=== PATIENT | female | born 1995 | race American Indian/Alaskan Native ===

== ENCOUNTER 2017-10-25 14:46 | Emergency (ER) | payer SELFPAY ==
[2017-10-25 14:58] VITALS: BP 127/78
[2017-10-25 15:26] LABS: HCG Qualitative,Urine Negative (Negative)
[2017-10-25 15:33] LABS: Bacteria,Urine 1+ /HPF (Negative); Bilirubin,Urine NEG (Negative); Blood,Urine SM (Negative); Color,Urine Amber (Yellow); Mucus,Urine 1+ /HPF; Renal Epithelial Cells,Urine 1 /LPF
[2017-10-25 15:35] LABS: WBC,Urine > 182.0 /HPF (0.0-6.0)
--- NOTE | 2017-10-25 19:27 | Emergency Department Report ---
ED Female HPI - General Chief complaint: Urogenital-Female Stated complaint: STD CHECK Time Seen by Provider: 10/25/17 19:21 Source: patient Mode of arrival: Ambulatory Limitations: No Limitations - History of Present Illness Initial comments: 22-year-old Pakistani female brought in by her dad concern for kidney cancer. Patient presents she's had lower back pain and abdominal pain since Monday. Patient also admits to urinary frequency and urgency. Patient reports low- grade fever and some nausea since being here in the emergency room doesn't feel that it that important. Patient's father reports that she doesn't drink much water. Patient's no past medical history currently takes no medications on a daily basis and has no known drug allergies. She currently does not have a primary care provider. -: days(s) (6) Radiation: L flank, R flank Severity: severe Severity scale (0 -10): 10 Quality: stabbing Consistency: constant Improves with: none Worsens with: urination Last Menstrual Period: 10/02/17 EDC: 07/09/18 - Related Data Previous Rx's Medication Instructions Recorded Last Taken Type Nitrofurantoin Monohyd/M-Cryst 100 mg PO BID 10 Days #20 capsule 10/25/17 Unknown Rx [Macrobid 100 mg Capsule] traMADol [Ultram 50 MG tab] 50 mg PO Q6HR PRN #12 tablet 10/25/17 Unknown Rx Allergies Allergy/AdvReac Type Severity Reaction Status Date / Time No Known Allergies Allergy Verified 10/25/17 14:55 ED Review of Systems ROS: Stated complaint: STD CHECK Other details as noted in HPI Constitutional: fever (low-grade) Respiratory: denies: cough, shortness of breath, wheezing Gastrointestinal: denies: abdominal pain, nausea, diarrhea Genitourinary: urgency, frequency Musculoskeletal: back pain Skin: denies: rash, lesions Neurological: denies: headache, weakness, paresthesias ED Past Medical Hx - Past Medical History Previous Medical History?: No - Surgical History Past Surgical History?: No - Social History Smoking Status: Never Smoker Substance Use Type: Marijuana - Medications Home Medications: Home Medications Medication Instructions Recorded Confirmed Last Taken Type Nitrofurantoin Monohyd/M-Cryst 100 mg PO BID 10 Days #20 capsule 10/25/17 Unknown Rx [Macrobid 100 mg Capsule] traMADol [Ultram 50 MG tab] 50 mg PO Q6HR PRN #12 tablet 10/25/17 Unknown Rx ED Physical Exam - General Limitations: No Limitations General appearance: alert, in no apparent distress - Head Head exam: Present: atraumatic, normocephalic - GI/Abdominal GI/Abdominal exam: Present: soft. Absent: distended, tenderness, guarding, rebound - Back Exam Back exam: Present: CVA tenderness (R), CVA tenderness (L) - Neurological Exam Neurological exam: Present: alert, oriented X3 - Psychiatric Psychiatric exam: Present: normal affect, normal mood - Skin Skin exam: Present: warm, dry, intact, normal color. Absent: rash ED Course Vital Signs 10/25/17 14:55 Temperature 99.3 F Pulse Rate 67 Respiratory 18 Rate Blood Pressure 127/78 O2 Sat by Pulse 100 Oximetry ED Medical Decision Making - Medical Decision Making Patient's been evaluated by this provider fast track. Urinalysis shows patient has a urinary tract infection. Discussed the patient that I'll place her antibiotics. Discussed the patient she needs to increase her water intake by 2 L a day. Discussed the patient to void after intercourse. Discussed the patient I will refer her to a primary care provider for further evaluation. Patient verbalizes understanding. Critical care attestation.: If time is entered above; I have spent that time in minutes in the direct care of this critically ill patient, excluding procedure time. ED Disposition Clinical Impression: UTI (urinary tract infection) Qualifiers: Urinary tract infection type: acute cystitis Hematuria presence: without hematuria Qualified Code(s): N30.00 - Acute cystitis without hematuria Disposition: - TO HOME OR SELFCARE Is pt being admited?: No Does the pt Need Aspirin: No Condition: Stable Instructions: Urinary Tract Infection in Women (ED) Additional Instructions: Please complete antibiotics as prescribed. Please increase your water intake by 2 L day. Please take pain medication as prescribed please do not operate heavy machinery while taking pain medication. Please follow up with her primary care provider I have listed one below. Prescriptions: Nitrofurantoin Monohyd/M-Cryst [Macrobid 100 mg Capsule] 100 mg PO BID 10 Days # 20 capsule traMADol [Ultram 50 MG tab] 50 mg PO Q6HR PRN #12 tablet PRN Reason: Pain Referrals: PRIMARY CARE, [Primary Care Provider] - 3-5 Days [facility] [Provider Group] - 3-5 Days Forms: Work/School Release Form(ED), Accompanied Note
== END 2017-10-25 19:45 | disposition home or self-care (01) ==
LOC: ED 14:46
DX: N39.0 Urinary tract infection, site not specified (principal)
CPT/HCPCS: 81001; 81025; 99283

== ENCOUNTER 2019-02-21 13:23 | Emergency (ER) | payer SELFPAY ==
[2019-02-21 13:30] VITALS: BP 107/79
--- NOTE | 2019-02-21 13:33 | Emergency Department Report ---
Blank Doc - Documentation Documentation: 23-year-old female that presents with lower back pains with weakness. Denies any injuries or trauma. Stated due to the pain has difficulty walking. This initial assessment/diagnostic orders/clinical plan/treatment(s) is/are subject to change based on patient's health status, clinical progression and re- assessment by fellow clinical providers in the ED. Further treatment and workup at subsequent clinical providers discretion. Patient/guardians urged not to elope from the ED as their condition may be serious if not clinically assessed and managed. Initial orders include: 1- Patient sent to [facility] for further evaluation and treatment 2- CT lumbar spine 3- UA
[2019-02-21 14:14] LABS: HCG Qualitative,Urine Negative (Negative)
[2019-02-21 14:18] LABS: Bacteria,Urine 1+ /HPF (Negative); Bilirubin,Urine NEG (Negative); Blood,Urine SM (Negative); Color,Urine Yellow (Yellow); Mucus,Urine FEW /HPF; Protein,Urine <15 mg/dL mg/dL (Negative); Urobilinogen,Urine < 2.0 mg/dL (<2.0)
[2019-02-21 15:21] LABS: BUN/Creatinine Ratio 17; Blood Urea Nitrogen 10 mg/dL (7-17); Calcium 8.9 mg/dL (8.4-10.2); Hemolysis Index 14
[2019-02-21 15:38] LABS: Hematocrit 36.9 % (30.3-42.9); Hemoglobin 11.8 gm/dl (10.1-14.3); Mean Corpuscular HGB Conc 32 % (30-34); Mean Corpuscular Volume 74 fl (79-97); Platelet Count 250 K/mm3 (140-440); Red Blood Count 5.01 M/mm3 (3.65-5.03); Red Cell Distribution Width 17.8 % (13.2-15.2)
--- NOTE | 2019-02-21 15:43 | Cat Scan Report ---
CT LUMBAR SPINE WITHOUT CONTRAST INDICATION: low back pain. TECHNIQUE: Axial imaging performed through the lumbar spine without the use of contrast. Sagittal a nd coronal reconstructed images were also reviewed. All CT scans at this location are performed usin g CT dose reduction for ALARA by means of automated exposure control. COMPARISON: None FINDINGS: Alignment: Spinal alignment is normal. Bones: There is no acute osseous abnormality. The disc spaces, facet joints and posterior elements are unremarkable. No neural foraminal narrowing or central canal narrowing is identified. Soft tissues: No acute or significant incidental soft tissue abnormality. IMPRESSION: Normal CT of the lumbar spine. Signer Name: Modesto Nagel Jr, MD Signed: 02/21/2019 3:38 PM Workstation Name: [id number]
--- NOTE | 2019-02-21 15:48 | Emergency Department Report ---
ED Back Pain/Injury HPI - General Chief Complaint: Weakness Stated Complaint: FATIGUE/SEVERE BACK/NUMB FINGERS Time Seen by Provider: 02/21/19 13:31 Source: patient Limitations: No Limitations - History of Present Illness Initial Comments: This is a 23-year-old -[place] female who presents to the emergency room with weakness, low back pain, numbness or tingling for 5 days. Patient reports symptoms started in lower back. Reports low back pain as achy pain that is wor se with movement. States pain is non-radiating. She reports feeling fatigued and numbness and tingling to bilateral hands and feet. Denies recent injury, change in urinary or bowel pattern, swelling, bruising, heaviness or stiffness in limbs, cough, fever, congestion, chills, abdominal pain. MD Complaint: back pain Onset/Timin -: days(s) Similar Symptoms Previously: No Place: home Radiation: none Severity: moderate Severity scale (0 -10): 6 Quality: aching Consistency: constant Improves With: none Worsens With: movement, walking Context: unknown Associated Symptoms: difficulty walking. denies: numbness, difficulty urinating, incontinence, fever/chills - Related Data Previous Rx's Medication Instructions Recorded Last Taken Type Nitrofurantoin Monohyd/M-Cryst 100 mg PO BID 10 Days #20 capsule 10/25/17 Unknown Rx [Macrobid 100 mg Capsule] traMADol [Ultram 50 MG tab] 50 mg PO Q6HR PRN #12 tablet 10/25/17 Unknown Rx Naproxen [Naprosyn] 500 mg PO BID PRN #20 tablet 02/21/19 Unknown Rx Allergies Allergy/AdvReac Type Severity Reaction Status Date / Time No Known Allergies Allergy Verified 10/25/17 14:55 ED Review of Systems ROS: Stated complaint: FATIGUE/SEVERE BACK/NUMB FINGERS Other details as noted in HPI Constitutional: weakness. denies: chills, fever Respiratory: denies: cough, shortness of breath, wheezing Cardiovascular: denies: chest pain, palpitations Gastrointestinal: denies: abdominal pain, nausea, diarrhea Musculoskeletal: back pain. denies: joint swelling, arthralgia Skin: denies: rash, lesions Neurological: denies: headache, weakness, paresthesias, abnormal gait Psychiatric: denies: anxiety, depression ED Back Pain Physical Exam - Exam General: Vital signs noted. No distress. Alert and acting appropriately. Back/Abdomen: Yes Sacroiliac Tenderness (bilaterally), No Abdominal Tenderness, No Perithoracic Tenderness, No Perilumbar Tenderness, No Flank Tenderness, No Straight Leg Raise Pain Neuro: Yes Normal Sensation, Yes Normal DTR's (muscle strength 5/5 and even), Yes Normal Gait, No Motor Weakness ED Course Vital Signs 02/21/19 02/21/19 13:28 13:53 Pulse Rate 108 H Respiratory 18 18 Rate Blood Pressure 107/79 O2 Sat by Pulse 96 Oximetry ED Medical Decision Making - Lab Data Result diagrams: 02/21/19 14:51 02/21/19 14:51 Lab Results 02/21/19 02/21/19 02/21/19 Range/Units 13:50 14:51 14:51 WBC 6.3 (4.5-11.0) K/mm3 RBC 5.01 (3.65-5.03) M/mm3 Hgb 11.8 (10.1-14.3) gm/dl Hct 36.9 (30.3-42.9) % MCV 74 L (79-97) fl MCH 24 L (28-32) pg MCHC 32 (30-34) % RDW 17.8 H (13.2-15.2) % Plt Count 250 (140-440) K/mm3 Lymph % (Auto) Fisheries Manager Seg Neutrophils % Fisheries Manager Sodium 138 (137-145) mmol/L Potassium 4.4 (3.6-5.0) mmol/L Chloride 101.9 (98-107) mmol/L Carbon Dioxide 22 (22-30) mmol/L Anion Gap 19 mmol/L BUN 10 (7-17) mg/dL Creatinine 0.6 L (0.7-1.2) mg/dL Estimated GFR > 60 ml/min BUN/Creatinine Ratio 17 % Glucose 93 (65-100) mg/dL Calcium 8.9 (8.4-10.2) mg/dL Urine Color Yellow (Yellow) Urine Turbidity Clear (Clear) Urine pH 5.0 (5.0-7.0) Ur Specific [place] 1.019 (1.003-1.030) Urine Protein <15 mg/dl (Negative) mg/dL Urine Glucose (UA) Neg (Negative) mg/dL Urine Ketones Neg (Negative) mg/dL Urine Blood Sm (Negative) Urine Nitrite Neg (Negative) Ur Reducing Substances Not Reportable Urine Bilirubin Neg (Negative) Urine Ictotest Not Reportable Urine Urobilinogen < 2.0 (<2.0) mg/dL Ur Leukocyte Esterase Neg (Negative) Urine WBC (Auto) 0.0 (0.0-6.0) /HPF Urine RBC (Auto) 2.0 (0.0-6.0) /HPF U Epithel Cells (Auto) 1.0 (0-13.0) /HPF Urine Bacteria (Auto) 1+ (Negative) /HPF Urine Mucus Few /HPF Urine HCG, Qual Negative (Negative) - Radiology Data Radiology results: report reviewed CT LUMBAR SPINE WITHOUT CONTRAST INDICATION: low back pain. TECHNIQUE: Axial imaging performed through the lumbar spine without the use of contrast. Sagittal and coronal reconstructed images were also reviewed. All CT scans at this location are performed using CT dose reduction for ALARA by means of automated exposure control. COMPARISON: None FINDINGS: Alignment: Spinal alignment is normal. Bones: There is no acute osseous abnormality. The disc spaces, facet joints and posterior elements are unremarkable. No neural foraminal narrowing or central canal narrowing is identified. Soft tissues: No acute or significant incidental soft tissue abnormality. IMPRESSION: Normal CT of the lumbar spine. - Medical Decision Making Patient was examined by me. Patient is nontoxic appearing and stable. Vitals are normal. Obtained labs and CT of L-spine. All labs are unremarkable. Normal CT of the lumbar spine. Patient informed of results. Referral to a primary care doctor for further evaluation. Start naproxen for pain. Follow up with PCP or return to the ER with worsening symptoms. Patient discharged home in stable condition. - Differential Diagnosis motor lesions, myopathy Critical care attestation.: If time is entered above; I have spent that time in minutes in the direct care of this critically ill patient, excluding procedure time. ED Disposition Clinical Impression: Weakness of extremity Low back pain Qualifiers: Chronicity: acute Back pain laterality: bilateral Sciatica presence: without sciatica Qualified Code(s): M54.5 - Low back pain Disposition: - TO HOME OR SELFCARE Is pt being admited?: No Does the pt Need Aspirin: No Condition: Stable Instructions: Arthralgia (ED) Additional Instructions: Follow-up with her primary care doctor. I have provided a list of primary care doctors and referrals list below. Return to the emergency room with worsening symptoms. Prescriptions: Naproxen [Naprosyn] 500 mg PO BID PRN #20 tablet PRN Reason: Pain , Severe (7-10) Referrals: [facility] [Outside] - 3-5 Days [facility] [Provider Group] - 3-5 Days [facility] [Provider Group] - 3-5 Days Forms: Work/School Release Form(ED) Time of Disposition: 16:10
[2019-02-21 19:07] LABS: Total Cells Counted 100
[2019-02-21 19:08] LABS: Anisocytosis 1+; Hypochromasia 1+; Large Platelets 1+; Platelet Estimate Consistent w Auto; Poikilocytosis 1+
== END 2019-02-21 16:18 | disposition home or self-care (01) ==
LOC: ED 13:23
DX: M54.5 Low back pain (principal); R53.1 Weakness; R20.0 Anesthesia of skin
CPT/HCPCS: 36415; 72131; 80048; 81001; 81025; 85007; 85025